=== PATIENT | female | born 1985 | race Two or more races ===

== ENCOUNTER 2017-11-17 08:29 | Emergency (ER) | payer BC ==
[~2017-11-17] VITALS: Ht 170.2 cm; Wt 50.3 kg
[2017-11-17 08:33] VITALS: BP 122/56
[2017-11-17] MEDS ORDERED: IBUPROFEN 200 MG TABLET ONE (08:56)
[2017-11-17] MEDS: IBUPROFEN 400 MG TABLET PO ONE (08:58)
== END 2017-11-17 09:48 | disposition home or self-care (01) ==
LOC: ER 08:33
DX: J02.9 Acute pharyngitis, unspecified (principal); Z88.2 Allergy status to sulfonamides; Z88.1 Allergy status to other antibiotic agents
CPT/HCPCS: 86403-TC; 87070-TC; A4606; Z7610